=== PATIENT | female | born 1960 | race Hispanic/Latino ===

== ENCOUNTER 2018-12-07 07:26 | Day surgery (SDC) | payer OTHER ==
[2018-12-07] MEDS ORDERED: NA CHLORIDE 0.9% 500 ML ONE (07:58)
[2018-12-07] MEDS ORDERED: LIDOCAINE 2% MPF 5 ML VIAL ONE (07:58)
[2018-12-07] MEDS ORDERED: PHENYLEPHRINE 10% OPTH 5ML ONE (07:58)
[2018-12-07] MEDS ORDERED: CYCLOPENTOLATE 1% OPTH 2 ML OPTH ONE ×2 (07:59→08:05)
[2018-12-07] MEDS ORDERED: LIDOCAINE HCL/PF 3.5% OPTH GEL ONE (07:59)
[2018-12-07] MEDS ORDERED: BUPIVACAINE 0.25% PF 10 ML VIAL ONE (07:59)
[2018-12-07] MEDS ORDERED: PHENYLEPHRINE 10% OPTH 5ML OPTH ONE ×2 (07:59→08:05)
[2018-12-07] MEDS ORDERED: TETRACAINE HCL 0.5% 4ML OPTH ONE (07:59)
[2018-12-07] MEDS ORDERED: CYCLOPENTOLATE 1% OPTH 2 ML ONE (07:59)
[2018-12-07] MEDS ORDERED: DUOVISC 1 KIT OPTH ONE (08:19)
[2018-12-07] MEDS ORDERED: BALANCED SALT IRRIG PLAIN 500 ML BTL IRR ONE (08:19)
[2018-12-07] MEDS ORDERED: EPINEPHRINE/PF 1 MG/ML AMP ONE (08:19)
[2018-12-07] MEDS ORDERED: NS 0.9% VIAL 10 ML ONE (08:19)
[2018-12-07] MEDS ORDERED: LIDOCAINE 1% MPF 2 ML AMPULE ONE (08:20)
[2018-12-07] MEDS ORDERED: MOXIFLOXACIN HCL 10 DROPS/ML **OR USE OPTH ONE (08:20)
[2018-12-07] MEDS ORDERED: FENTANYL CITR 100 MCG/2 ML ONE (09:03)
[2018-12-07] MEDS ORDERED: MIDAZOLAM HCL 2 MG/2 ML INJ ONE (09:04)
--- NOTE | 2018-12-07 09:37 | P.BOP ---
Preoperative diagnosis: Nuclear sclerotic cataract and goniosynechiae OS Postoperative diagnosis: Same Primary procedure: Phacoemulsification with IOL OS Estimated blood loss: None Anesthesia: Local (Topical with anesthesia for cataract surgery) Complications: None Implants: ZXR00 +25.5 Transferred to: Other (Day surgery) Condition: Good
--- NOTE | 2018-12-07 20:12 | OP ---
Date of Procedure: 12/07/2018 Surgeon: Jazlyn Rios MD Anesthesiologist: Alaina Caraballo C.R.N.A. and Yahir Flores M.D. 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 Operation Performed: Phacoemulsification with Symfony multifocal intraocular lens implant, left eye. Anesthesia: Per cataract surgery. Complications: None. Description Of Procedure: In the operating room the patient was prepped and draped in the usual sterile fashion for ophthalmic surgery. A lid speculum was placed in the left eye. Two paracentesis sites were made superiorly and inferiorly in the limbal cornea. Viscoat was placed in the anterior chamber and a crescent blade was used to make a corneal groove and tunnel, and a keratome was used to enter the anterior chamber. Provisc was placed in the anterior chamber and a 360 degree capsulotomy was performed with a cystitome. The lens was hydrodissected with BSS and rotated freely. The lens was removed with a stop and chop technique. 1.68 phaco CDE was used to remove the lens. Residual cortex was removed with the irrigation and aspiration. Provisc was placed in the capsular bag. A ZXR00 +25.5 lens was placed in the capsular bag without complications. Irrigation and aspiration was used to remove residual viscoelastic. The paracentesis sites were hydrated with BSS. The wound and paracentesis sites were inspected and found to be watertight. Vigamox 0.07 cc was placed intracamerally at the end of the procedure. The eye was irrigated with balanced salt solution. The eye was patched with a soft cotton patch and Puri metal shield. The patient was returned to day surgery in good condition. Comments: Akten was placed in the eye in Day surgery and irrigated out of the eye in the OR. Preservative-free 1% lidocaine was placed in the anterior chamber prior to Viscoat. Discharge Instructions: Ms. Rushing is discharged home in good condition and is to follow up with Dr. Rios in the morning. KEZIA/ANTONIETA Voice ID: [id number] Report ID: [id number] RICKY
== END 2018-12-07 10:06 | disposition home or self-care (01) ==
LOC: OR 07:26
PROVIDERS: ATTEND Ophthalmology Retina Specialist
PROC: 08RK3JZ Replacement of Left Lens with Synthetic Substitute, Percutaneous Approach (ICD-10-PCS; principal; 2018-12-07 09:10)
DX: H25.12 Age-related nuclear cataract, left eye (principal); H21.5 Other and unspecified adhesions and disruptions of iris and ciliary body; H40.20X0 Unspecified primary angle-closure glaucoma, stage unspecified; H04.123 Dry eye syndrome of bilateral lacrimal glands; E78.00 Pure hypercholesterolemia, unspecified; Z79.899 Other long term (current) drug therapy
CPT/HCPCS: J0171; J2001; J2250; J3010